=== PATIENT | male | born 1995 | race Caucasian/White ===

== ENCOUNTER 2016-06-11 12:01 | Emergency (ER) | payer OTHER ==
[~2016-06-11] VITALS: Ht 182.9 cm; Wt 112.0 kg
[~2016-06-11 12:01] MED LIST: ACET1TAB40 PO; ERYTOPOI LEFT EYE
[2016-06-11 12:08] VITALS: Ht 182.9 cm; Wt 112.0 kg
[2016-06-11] MEDS ORDERED: KETOROLAC 30 MG INJ IM STA (14:08)
--- NOTE | 2016-06-11 14:31 | RADRPT ---
PROCEDURE: XR Chest. CLINICAL INDICATION: Chest pain. TECHNIQUE: Single frontal view. COMPARISON: None. FINDINGS: The lungs are clear. The heart size is normal. There is no pleural effusion. There is no pneumothorax. IMPRESSION: 1. Normal chest radiograph. RPTAT: QQ .Afshin Bassett MD, Date Time Electronically viewed and signed by .Afshin Bassett MD, on 06/11/2016 14:30 .R/
--- NOTE | 2016-06-11 14:36 | ERD ---
ER Documentation Chief Complaint Date/Time DATE: 06/11/16 TIME: 14:34 Chief Complaint cp with radiating back of neck pain since last night HPI This patient is a 20-year-old male with no significant medical history presenting to the emergency department for stabbing chest pain which began last night. The patient states the pain is reproducible when pushing on the chest wall. The patient reports some radiation to the back. The patient rates his pain a 5 out of 10 on the pain scale. Patient denies any anxiety. The patient denies any shortness of breath, fevers, chills, urinary symptoms, or other symptoms at this time. ROS All systems reviewed and are negative except as per history of present illness. Medications Home Meds Active Scripts Naproxen* (Naprosyn*) 500 Mg Tablet, 500 MG PO BID Y for PAIN AND/OR INFLAMMATION, #20 TAB Prov:JAS ARCHULETA PA-C 06/11/16 Erythromycin* (Erythromycin* Ophthalmic) 1 Applic Oint, 1 APPLIC LEFT EYE QID for 7 Days, EA Prov:RONY NICHOLAS MD 02/04/16 Acetaminophen with Codeine (Acetaminophen-Cod #3 Tablet) 1 Each Tablet, 1 TAB PO Q6H Y for PAIN, #10 TAB Prov:RONY NICHOLAS MD 02/04/16 Allergies Allergies: Coded Allergies: No Known Allergy (Unverified , 12/23/13) PMhx/Soc History of Surgery: No Anesthesia Reaction: No Hx Neurological Disorder: No Hx Respiratory Disorders: No Hx Cardiac Disorders: No Hx Psychiatric Problems: No Hx Miscellaneous Medical Probl: No Hx Alcohol Use: No Hx Substance Use: No Hx Tobacco Use: No FmHx Noncontributory for chief complaint Physical Exam Vitals Vital Signs Date Time Temp Pulse Resp B/P Pulse Ox O2 Delivery O2 Flow Rate FiO2 06/11/16 12:08 98.5 68 20 140/87 97 Physical Exam INITIAL VITAL SIGNS: Reviewed by me. GENERAL: Alert and interactive. No acute distress. HEAD: Head is normocephalic and atraumatic. EYES: EOMI. No scleral icterus. No conjunctival injection. ENT: Moist mucosa. NECK: Supple. Full range of motion. RESPIRATORY: Normal respiratory effort. Clear breath sounds bilaterally. No wheezing, rales, or rhonchi. CV: Regular rate and rhythm. Normal S1 S2. No S3 or S4. No murmurs. CHEST: Chest wall tenderness to palpation. ABDOMEN: Soft, non-distended, non-tender. No guarding. No rebound. No masses. EXTREMITIES: No deformity. SKIN: Warm and dry. NEUROLOGIC: Alert and oriented x 4. Speech is normal. Moves all extremities equally. No motor or sensory deficits noted. Results 24 hrs Current Medications Medications (Trade) Dose Ordered Sig/Vale Route PRN Reason Start Time Stop Time Status Last Admin Dose Admin Ketorolac Tromethamine (Toradol) 30 mg ONCE STAT IM 06/11/16 14:08 06/11/16 14:10 DC 06/11/16 14:14 Procedures/MDM EMERGENCY DEPARTMENT COURSE / MEDICAL DECISION MAKING: This is a 20-year-old male who comes to the emergency room secondary to complaints of chest wall pain. On physical examination there is tenderness to palpation of the chest wall. Auscultation of the heart shows no murmurs, rubs, or gallops. The patient was given IM Toradol in the department. On re-evaluation, the patient was feeling improved. Radiology: Chest x-ray 1 view interpreted by radiologist: The lungs are clear, the heart size is normal, there is no pleural effusion, there is no pneumothorax, impression: Normal chest radiograph EKG: Interpreted by ED physician Rate/Rhythm: Normal sinus rhythm with a rate of 70 bpm. QRS, ST, T-waves: No changes consistent w/ acute ischemia Impression: No evidence of ischemia or arrhythmia The primary diagnosis is chest wall tenderness. I have low suspicion for pulmonary embolism, pneumothorax, cardiomegaly, bronchitis, pneumonia, or other emergencies at this time. Discharge: I have discussed the lab results and diagnostic findings with the patient and answered any questions or concerns. The patient was discharged with a prescription for naproxen. The patient was explicitly instructed to return to the emergency department immediately should chest pain continue or worsen. The patient was advised to followup with their PMD in 1-2 days and to return to the Emergency Department if there are any new or worsening symptoms. The patient understood and agreed with the diagnosis, treatment and plan. The patient is stable for discharge at this time. Departure Diagnosis: Primary Impression: Chest wall tenderness Condition: Stable Additional Instructions: Follow-up with your primary care physician within 1 week. Return to the emergency department immediately should you have any new or worsening symptoms, uncontrolled fevers, or other unexplained symptoms. Take all medications as directed. JAS ARCHULETA PA-C Jun 11, 2016 14:36
[2016-06-11] MEDS ORDERED: NAPR-260 PO (14:43)
== END 2016-06-11 15:11 | disposition home or self-care (01) ==
LOC: FTE 12:01
DX: R07.89 Other chest pain (principal)
CPT/HCPCS: 71010; 93005; 96372; J1885; Z7502